=== PATIENT | male | born 1995 | race Caucasian/White ===

== ENCOUNTER 2017-04-03 09:44 | Emergency (ER) | payer OTHER ==
[2017-04-03 09:50] VITALS: PULSE 50; RESP 16; TEMP 98.2; O2SAT 96
[2017-04-03] MEDS ORDERED: NS 1,000 ML IV ONE (09:53)
[2017-04-03] MEDS ORDERED: fentaNYL 100 MCG/2 ML INJ IVP ONE (09:53)
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
[2017-04-03 11:22] VITALS: BP 116/84
== END 2017-04-03 11:27 | disposition home or self-care (01) ==
LOC: EDUNIT#
PROC: 3E0337Z Introduction of Electrolytic and Water Balance Substance into Peripheral Vein, Percutaneous Approach (ICD-10-PCS; principal; 2017-04-03)
DX: S42.021A Displaced fracture of shaft of right clavicle, initial encounter for closed fracture (principal); J45.909 Unspecified asthma, uncomplicated; V18.4XXA Pedal cycle driver injured in noncollision transport accident in traffic accident, initial encounter; Y92.410 Unspecified street and highway as the place of occurrence of the external cause; Y93.55 Activity, bike riding
CPT/HCPCS: 96374; A4565; J3010